=== PATIENT | male | born 1970 | race Caucasian/White ===

== ENCOUNTER → 2016-12-28 | Outpatient (CLI) | payer OTHER ==
--- NOTE | 2016-12-28 14:24 | EST ---
DATE OF SERVICE: 12/28/2016 AGE: 46Y SEX: M HT: 68" WT: 195 lbs. Protocol Brian: X Other: Stress Stage: 5 Dur. of Exercise: 15:00 *Heart Rate Blood Pressure *Rest: 47 Rest: 139/77 * *Max. Achieved: 156 Maximum BP: 218/68 85% PMHR: 148 100% PMHR: 174 *METS: 11.5 INDICATIONS: Chest pain. MEDICATIONS: Aspirin, vitamin D. Baseline rhythm is sinus mechanism, rate of 47, normal axis and intervals. Normal electrocardiogram. Baseline blood pressure 139/77 mmHg. Patient exercised on Brian protocol for 15 minutes reaching peak rate of 156 beats per minute, which is equal to 89% maximum predicted heart rate; peak blood pressure 212/68 mmHg. Test was terminated due to fatigue. There was no chest pain. Electrocardiograph monitoring revealed no evidence of diagnostic ischemic ST deviation. FINDINGS: 1. Excellent exercise tolerance. 2. Normal electrocardiograph response to exercise with no evidence of exercise-induced ischemia.
== END ==
LOC: RADNMMAIN 11:03
PROVIDERS: ATTEND Internal Medicine
DX: R07.89 Other chest pain (principal)
CPT/HCPCS: 93017

== ENCOUNTER 2017-02-23 10:23 | Day surgery (SDC) | payer OTHER ==
[2017-02-21 12:27] VITALS: BMI 29.6
[~2017-02-23 10:23] MED LIST: DEXAMETHASONE SOD PHOSPHATE 10 MG/ML 1 ML VIAL IV ONE; HEPARIN SODIUM,PORCINE 5,000 UNIT/ML 1 ML VIAL SQ ONE; HYDROmorphone 1 MG/ML 1 ML SYRINGE IVP PRN; ONDANSETRON 4 MG/2 ML VIAL IVP ONE; ceFAZolin 2 GM in SODIUM CHLORIDE 0.9% 100 ML IVPB ONE
[2017-02-23] MEDS: LACTATED RINGERS 1,000 ML IV SCH (11:09)
[2017-02-23] MEDS ORDERED: LIDOCAINE 1% 20 ML VIAL (10MG/ML) FOR IV START INTRADERMA ONE ×2 (11:10)
[2017-02-23] MEDS ORDERED: MIDAZOLAM 2 MG/2 ML VIAL ONE (13:37)
[2017-02-23] MEDS ORDERED: HYDROmorphone (PF) 1 MG/ML ONE (13:37)
[2017-02-23] MEDS ORDERED: ROCURONIUM BROMIDE 10 MG/ML 10 ML VIAL IV ONE (13:37)
[2017-02-23] MEDS ORDERED: NEOSTIGMINE 1 MG/ML 10 ML VIAL ONE (13:37)
[2017-02-23] MEDS ORDERED: LIDOCAINE 1% INJ 10MG/ML (20 ML MDV) ONE (13:37)
[2017-02-23] MEDS ORDERED: fentaNYL (PF) 50 MCG/ML 2 ML AMP ONE (13:37)
[2017-02-23] MEDS ORDERED: SUCCINYLCHOLINE CHLORIDE 100 MG/5 ML SYR IV ONE (13:37)
[2017-02-23] MEDS ORDERED: GLYCOPYRROLATE 0.2 MG/ML 2 ML VIAL ONE (13:37)
[2017-02-23] MEDS ORDERED: PROPOFOL 10 MG/ML 20 ML VIAL IV ONE (13:37)
[2017-02-23] MEDS ORDERED: BUPIVACAIN-EPI 0.25%-1:200,000 30 ML VIAL SQ ONE (14:04)
[2017-02-23] MEDS ORDERED: LACTATED RINGERS 1,000 ML IV ONE (14:58)
--- NOTE | 2017-02-23 15:14 | P.OP ---
Date of Procedure: 02/23/17 Preoperative Diagnosis: Right inguinal hernia Postoperative Diagnosis: Direct right inguinal hernia Procedure(s) Performed: Robot assisted laparoscopic inguinal hernia repair with mesh Implants: Anesthesia: GISELLAA Surgeon: Florin Jung Pathology: none sent Condition: stable Disposition: PACU Indications for Procedure: Operative Findings: Right direct inguinal hernia Description of Procedure: Informed consent was obtained patient and then The patient was brought to the operating room and placed in supine position. General anesthesia with endotracheal intubation was performed as per anesthesia team. A thomas catheter was inserted under sterile aseptic precautions. Duraprep was used to prep the skin followed by application of sterile drapes . He was placed in the lithotomy position. A timeout was performed to verify correct patient, correct procedure and correct side. Patient was confirmed to receive perioperative IV antibiotics, subcutaneous heparin 5000 units and bilateral SCDs were placed. The left upper quadrant point was identified and a stab incision was made. 5 Millimeter Optiview technique was used to enter the abdominal cavity and insufflated to 15 mmHg. To 8 mm one 15 mm port was appropriately placed under direct vision. Patient was placed in Trendelenburg position and the robot was docked. On inspection there was a unilateral direct inguinal hernia on the right side. The appropriate instruments were introduced and median umbilical fold was retracted laterally and incised with the help of a scissors. Preperitoneal plane was created exposing the pubic tubercle medially inferiorly there was good exposure of the myopectineal orifice as well as the ductus deferens and vessels. Once the appropriate size pocket had been made and the hernia sac for the direct hernia was completely reduced a 10 x 15 Pro 4th grade teacher mesh was introduced in the abdominal cavity and unfurled. The peritoneal flap was closed with running 20C LOC suture. The needles were also removed prior to closing. The robot was then undocked and the 12 mm port site was closed with the help of a Julian Montano. Skin was closed with 4-0 Monocryl and Dermabond was applied patient tolerated procedure well he was experiencing taken to recovery room in stable condition.
[2017-02-23 15:34] VITALS: TEMP 98.8
[2017-02-23 15:48] VITALS: RESP 16
[2017-02-23 16:59] VITALS: BP 112/65; PULSE 43
== END 2017-02-23 17:23 | disposition home or self-care (01) ==
LOC: OR 10:23
PROVIDERS: ATTEND Surgery
DX: K40.90 Unilateral inguinal hernia, without obstruction or gangrene, not specified as recurrent (principal)
CPT/HCPCS: 49650; C1781; J1644; J1100; J0690; J2405

== ENCOUNTER 2017-02-24 10:40 | Emergency (ER) | payer OTHER ==
[2017-02-24 10:55] VITALS: BP 122/54; PULSE 61; RESP 18; TEMP 97.6
--- NOTE | 2017-02-24 11:14 | ED ---
General Adult HPI - General Chief complaint: Urogenital Stated complaint: Catheter Time Seen by Provider: 02/24/17 10:46 Source: patient, RN notes reviewed Mode of arrival: ambulatory Limitations: no limitations - History of Present Illness Initial comments: Patient is a pleasant 47-year-old male presenting to the emergency department with difficulty with urination. Patient did have recent hernia repair done. Patient did do self-catheterization once yesterday with resolution of symptoms. Patient was unable to urinate more than a couple of drops this morning. No abdominal pain. No fever. No history of similar symptoms previously. Patient does need to get up in the middle the night at times to urinate. - Related Data Home Medications Medication Instructions Recorded Confirmed Acetaminophen Tab [Tylenol Tab] 1,000 mg PO Q6HR PRN 02/24/17 02/24/17 Previous Rx's Medication Instructions Recorded HYDROcodone/APAP 5-325MG [[place] 1 tab PO Q6HR PRN #10 tab 02/23/17 5-325] Ibuprofen [Motrin] 800 mg PO Q8HR PRN #30 tab 02/23/17 Allergies Allergy/AdvReac Type Severity Reaction Status Date / Time No Known Allergies Allergy Verified 02/24/17 11:06 Review of Systems ROS Statement: Those systems with pertinent positive or pertinent negative responses have been documented in the HPI. ROS Other: All systems not noted in ROS Statement are negative. Constitutional: Denies: fever Eyes: Denies: eye pain ENT: Denies: ear pain Respiratory: Denies: cough Cardiovascular: Denies: chest pain Endocrine: Denies: fatigue Gastrointestinal: Denies: abdominal pain Genitourinary: Reports: other (Retention). Denies: dysuria, discharge Musculoskeletal: Denies: back pain Skin: Denies: rash Neurological: Denies: weakness Past Medical History Past Medical History: Hyperlipidemia Additional Past Medical History / Comment(s): RT ING HERNIA CURRENTLY. VARICOSE VEIN, MINOR. TORN LABRUM LT HIP. History of Any Multi-Drug Resistant Organisms: None Reported Past Surgical History: Hernia Repair, Tonsillectomy Additional Past Surgical History / Comment(s): hernia surgery 02/23/17 Past Anesthesia/Blood Transfusion Reactions: No Reported Reaction Past Psychological History: No Psychological Hx Reported Smoking Status: Never smoker Past Alcohol Use History: Occasional Past Drug Use History: None Reported - Past Family History Mother Family Medical History: Cancer General Exam Limitations: no limitations General appearance: alert, in no apparent distress Eye exam: Present: normal appearance Respiratory exam: Present: normal lung sounds bilaterally Cardiovascular Exam: Present: regular rate, normal rhythm GI/Abdominal exam: Present: soft, other (Incisions clean and dry and intact). Absent: tenderness Neurological exam: Present: alert Psychiatric exam: Present: normal affect, normal mood Skin exam: Present: normal color Course Vital Signs 02/24/17 10:45 Temperature 97.6 F Pulse Rate 61 Respiratory 18 Rate Blood Pressure 122/54 O2 Sat by Pulse 97 Oximetry Disposition Clinical Impression: Urinary retention Disposition: HOME SELF-CARE Condition: Stable Instructions: Urinary Retention in Men (ED) Additional Instructions: Please follow-up with Dr. Jung in the beginning of the week for reevaluation. Please also follow-up with primary care physician and urologist. Please take Flomax for the next week. Return for abdominal pain, fever, increased pain, worsening symptoms or other concerns. Referrals: Adolfo Melendez MD [Primary Care Provider] - 1-2 days Florin Jung MD [STAFF PHYSICIAN] - 1-2 days Robel Silva MD [STAFF PHYSICIAN] - 1-2 days Time of Disposition: 11:14
== END 2017-02-24 11:30 | disposition home or self-care (01) ==
LOC: EC 10:40
DX: R33.9 Retention of urine, unspecified (principal); Z98.890 Other specified postprocedural states
CPT/HCPCS: 51702; 99283

== ENCOUNTER 2022-04-10 12:15 | Emergency (ER) | payer BC, OTHER ==
[2022-04-10 12:21] VITALS: RESP 15; TEMP 98
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
--- NOTE | 2022-04-10 12:56 | XR ---
EXAMINATION TYPE: XR ribs RT w pa chest xray, XR clavicle RT, XR shoulder complete RT DATE OF EXAM: 04/10/2022 12:45 PM INDICATION: Patient age:Male; 52 years old; Reason for study: pain fall; COMPARISON: None TECHNIQUE: Frontal and oblique views of the right ribs with PA chest . Frontal and frontal oblique views of the right clavicle Right shoulder in AP, [place] and Y FINDINGS: Acute displaced fracture of the right clavicle distally with medial fragment displacement s uperiorly. Right lateral rib #4 fracture without displacement. The lungs are grossly unremarkable. Th e right humerus and glenoid appear intact. IMPRESSION RIBS: 1. Acute distal right clavicle fracture. 2. Right lateral rib #4 fracture.
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
[2022-04-10 14:13] VITALS: BP 133/78; PULSE 52
== END 2022-04-10 14:13 | disposition home or self-care (01) ==
LOC: EC 12:15
DX: S42.031A Displaced fracture of lateral end of right clavicle, initial encounter for closed fracture (principal); S22.31XA Fracture of one rib, right side, initial encounter for closed fracture; V28.4XXA Motorcycle driver injured in noncollision transport accident in traffic accident, initial encounter; Y92.410 Unspecified street and highway as the place of occurrence of the external cause; Y93.55 Activity, bike riding
CPT/HCPCS: 99284

== ENCOUNTER 2022-08-24 08:52 | Day surgery (SDC) | payer BC ==
[~2022-08-24 08:52] MED LIST changes: -DEXAMETHASONE SOD PHOSPHATE 10 MG/ML 1 ML VIAL IV ONE; -HEPARIN SODIUM,PORCINE 5,000 UNIT/ML 1 ML VIAL SQ ONE; -HYDROmorphone 1 MG/ML 1 ML SYRINGE IVP PRN; +LACTATED RINGERS 1,000 ML IV SCH; +LIDOCAINE 1% (10MG/ML) FOR IV START INTRADERMA PRN; -ONDANSETRON 4 MG/2 ML VIAL IVP ONE; -ceFAZolin 2 GM in SODIUM CHLORIDE 0.9% 100 ML IVPB ONE
[2022-08-24 09:10] VITALS: RESP 16; TEMP 97.8
--- NOTE | 2022-08-24 09:11 | P.GSHP ---
History of Present Illness H&P Date: 08/24/22 CHIEF COMPLAINT: Colon screen HISTORY OF PRESENT ILLNESS: The patient is a 52-year-old male who presents for colon screen. Lower endoscopy was offered for further evaluation and management. PAST MEDICAL HISTORY: Please see list. PAST SURGICAL HISTORY: Please see list. MEDICATIONS: Please see list. ALLERGIES: Please see list. SOCIAL HISTORY: No illicit drug use FAMILY HISTORY: No reports of Crohn disease or ulcerative colitis. REVIEW OF ORGAN SYSTEMS: CONSTITUTIONAL: No reports of fevers or chills. PHYSICAL EXAM: VITAL SIGNS: Stable GENERAL: Well-developed pleasant in no acute distress. HEENT: No scleral icterus. Extraocular movements grossly intact. Moist buccal mucosa. NECK: Supple without lymphadenopathy. CHEST: Unlabored respirations. Equal bilateral excursions. CARDIOVASCULAR: Regular rate and rhythm. Distal 2+ pulses. ABDOMEN: Soft, nontender, nondistended. MUSCULOSKELETAL: No clubbing, cyanosis, or edema. ASSESSMENT: 1. Colon screen. PLAN: 1. Recommend proceeding with a lower endoscopy Past Medical History Past Medical History: Hyperlipidemia, Osteoarthritis (OA) Additional Past Medical History / Comment(s): VARICOSE VEIN, MINOR. TORN LABRUM LT HIP. History of Any Multi-Drug Resistant Organisms: None Reported Past Surgical History: Hernia Repair, Tonsillectomy Additional Past Surgical History / Comment(s): hernia surgery 02/23/17, rt clavicle surgery titanium plate Past Anesthesia/Blood Transfusion Reactions: No Reported Reaction Additional Past Anesthesia/Blood Transfusion Reaction / Comment(s): no blood tranfusions Smoking Status: Never smoker - Past Family History Mother Family Medical History: Cancer Additional Family Medical History / Comment(s): liver issues Father Family Medical History: Coronary Artery Disease (CAD) Medications and Allergies Home Medications Medication Instructions Recorded Confirmed Type No Known Home Medications 08/19/22 08/24/22 History Allergies Allergy/AdvReac Type Severity Reaction Status Date / Time No Known Allergies Allergy Verified 08/24/22 09:07 Surgical - Exam Vital Signs Temp Pulse Resp BP Pulse Ox 97.8 F 44 L 16 151/87 100 08/24/22 09:08 08/24/22 09:08 08/24/22 09:08 08/24/22 09:08 08/24/22 09:08
[2022-08-24] MEDS ORDERED: LACTATED RINGERS 1,000 ML IV ONE (09:24)
[2022-08-24] MEDS ORDERED: PROPOFOL 10 MG/ML 20 ML VIAL IV ONE (10:07)
[2022-08-24 10:59] VITALS: BP 119/72; PULSE 40
--- NOTE | 2022-08-24 21:43 | P.PCN ---
Date of Procedure: 08/24/22 Description of Procedure: PREOPERATIVE DIAGNOSIS: Family history colon cancer Colonoscopy screening POSTOPERATIVE DIAGNOSIS: Tubular adenoma transverse colon Sigmoid diverticulosis OPERATION: Colonoscopy to the ileocecal valve and appendiceal orifice, cecum Colonoscopy with hot snare polypectomy SURGEON: Janeen Flower MD. ANESTHESIA: MAC. INDICATIONS: The patient is an 52-year-old male who presents family history of malignant colon polyps and colon screen. Benefits and risks were described and informed consent was obtained. DESCRIPTION OF PROCEDURE: The patient had undergone Sutab prep. The patient had been brought into the operating room and laid in the left lateral decubitus position. After adequate intravenous sedation, the rectum was examined with 2% lidocaine jelly. The prostate was unremarkable. No external hemorrhoids were encountered. The rectal tone was within normal limits. No lesions were palpated in the rectal vault. An Olympus colonoscope was advanced until the cecum, ileocecal valve and appendiceal orifice were clearly viewed. The prep was excellent. No sigmoid diverticulosis was encountered. Colonic polyps were found and removed. No evidence of focal colitis was found. Retroflexion of the scope demonstrated grade 2 internal hemorrhoids without active bleeding or inflammation. The colon was desufflated. The patient had tolerated the procedure well. Withdrawal time was over 6 minutes. FINDINGS: Aronchick preparation quality scale 1 (1-5) Internal hemorrhoids, grade 1 No external hemorrhoids No arteriovenous malformations. No sigmoid diverticulosis Removal of 1 polyp: - Snare polypectomy mid-transverse colon, 8 mm tubulovillous adenoma polyp. No focal colitis. RECOMMENDATIONS: Given severity of tubular adenomas, recommend repeat colonoscopy 3 years, 2024 Plan - Discharge Summary Discharge Rx Participant: No New Discharge Prescriptions: Continue No Known Home Medications Discharge Medication List No Known Home Medications 08/19/22 [History] Follow up Appointment(s)/Referral(s): Janeen Flower MD [STAFF PHYSICIAN] - As Needed Patient Instructions/Handouts: *Surgery [facility] - (Anesthesia) Endoscopy Discharge Instructions, Colorectal Polyps (GEN), Colonoscopy (DC) Activity/Diet/Wound Care/Special Instructions: Repeat colonoscopy 3 years2024 Discharge Disposition: HOME SELF-CARE
== END 2022-08-24 11:20 | disposition home or self-care (01) ==
LOC: ORWHC2ENDO 08:52
PROVIDERS: ATTEND Surgery Plastic and Reconstructive Surgery
DX: Z12.11 Encounter for screening for malignant neoplasm of colon (principal); D12.3 Benign neoplasm of transverse colon; K64.0 First degree hemorrhoids; Z80.0 Family history of malignant neoplasm of digestive organs; E78.5 Hyperlipidemia, unspecified; M19.90 Unspecified osteoarthritis, unspecified site; Z86.718 Personal history of other venous thrombosis and embolism; Z96.698 Presence of other orthopedic joint implants; Z98.890 Other specified postprocedural states; Z82.49 Family history of ischemic heart disease and other diseases of the circulatory system
CPT/HCPCS: 88305; 45385; J2704

== ENCOUNTER → 2022-09-06 | Outpatient (CLI) | payer BC ==
--- NOTE | 2022-09-06 07:19 | XR ---
EXAMINATION TYPE: XR ankle complete RT DATE OF EXAM: 09/06/2022 COMPARISON: None HISTORY: Pain TECHNIQUE: 3 view right ankle FINDINGS: Ankle mortise is intact. No displaced fractures are evident. Some minimal soft tissue swell ing over the lateral malleolus. Subtle cortical irregularity may be present laterally. Small avulsion is not excluded on the AP projection. No additional areas suspicious for fracture is evident. Joint spaces appear preserved. Small plantar calcaneal heel spurs present. IMPRESSION: 1. There is subtle cortical irregularity at the distal lateral malleolus with mild overlying soft ti ssue swelling. Small avulsion is not entirely excluded. Clinical correlation and follow-up is recomme nded. MRI can be performed for soft tissue evaluation.
== END | disposition home or self-care (01) ==
LOC: LABMAIN 00:33
PROVIDERS: ATTEND Emergency Medicine
DX: M25.571 Pain in right ankle and joints of right foot (principal)